=== PATIENT | male | born 1960 | race Caucasian/White ===

== ENCOUNTER 2022-11-11 07:24 | Day surgery (SDC) | payer OTHER ==
[2022-11-06 14:52] VITALS: BP 132/94
[2022-11-06 15:00] LABS: BASOPHILS % (AUTO) 0.7 % (0.0-5.0); EOSINOPHILS % (AUTO) 2.7 % (0.0-8.0); LYMPHOCYTES % (AUTO) 21.3 % (21.0-51.0); MEAN CORPUSCULAR HGB CONC 33.2 g/dL (32.0-36.0); MEAN CORPUSCULAR VOLUME 93.3 fL (79-99); MONOCYTES % (AUTO) 7.4 % (3.0-13.0); NEUTROPHILS % (AUTO) 67.6 % (40.0-77.0); PLATELET COUNT (AUTO) 229 K/uL (130-400); RED BLOOD CELL COUNT(AUTO) 5.36 MIL/uL (4.50-6.20); RED CELL DISTRIBUTION WIDTH 12.9 % (11.0-15.5); WHITE BLOOD COUNT (AUTO) 11.7 K/uL (4.8-10.8)
[2022-11-06 15:06] LABS: CREATININE 1.5 mg/dL (0.5-1.5)
[2022-11-06 15:18] LABS: INR 1.01 (0.85-1.15)
[2022-11-06 15:19] LABS: PARTIAL THROMBOPLASTIN TIME 30.2 SEC (26.3-35.5)
[2022-11-06 15:23] LABS: B-TYPE NATRIURETIC PEPTIDE 91 pg/mL (0-100)
[~2022-11-11] VITALS: Ht 190.5 cm; Wt 146.7 kg
[~2022-11-11 07:24] MED LIST: AMIO200T68 PO; AMLO-257 PO; APIX5TAB PO; ATOR40TA69 PO; LOSA100T58 PO; METO100T14 PO
[2022-11-11] MEDS ORDERED: 0.9%NACL 1000ML 1,000 ML IV ONE (08:43)
[2022-11-11 08:48] VITALS: BP 142/95
[2022-11-11] MEDS ORDERED: LIDOCAINE HCL 2% VISCOUS 15 ML UDCUP ONE (08:59)
[2022-11-11] MEDS ORDERED: MIDAZOLAM HCL 1 MG/ML 2ML VIAL ONE ×2 (09:02→09:30)
[2022-11-11] MEDS ORDERED: FENTANYL CITRATE PF 50 MCG/1 ML 2ML VIAL ONE (09:02)
[2022-11-11] MEDS ORDERED: NALOXONE HCL 0.4 MG/1 ML ML ONE (09:03)
[2022-11-11] MEDS ORDERED: FLUMAZENIL 0.1MG/1ML 5ML VIAL IV ONE (09:03)
[2022-11-11] MEDS ORDERED: SILVER SULFADIAZINE CREAM 50 GM TP SCH (10:00)
== END 2022-11-11 11:30 | disposition home or self-care (01) ==
LOC: DAH 07:24
PROVIDERS: ATTEND Internal Medicine Interventional Cardiology
DX: I48.11 Longstanding persistent atrial fibrillation (principal); Z20.822 Contact with and (suspected) exposure to COVID-19; I34.0 Nonrheumatic mitral (valve) insufficiency; E66.01 Morbid (severe) obesity due to excess calories; I10 Essential (primary) hypertension; Z86.73 Personal history of transient ischemic attack (TIA), and cerebral infarction without residual deficits; Z95.5 Presence of coronary angioplasty implant and graft; Z68.41 Body mass index [BMI] 40.0-44.9, adult; Z79.899 Other long term (current) drug therapy; Z98.890 Other specified postprocedural states
CPT/HCPCS: 80048; 83880; 85025; 85610; 85730; 87426; 36415; 92960; 93312; 93005 ×2; A4663 ×2; J3010; J7030; J2250 ×2; A4615; A4215; A4223; A7002; A4222; A4221; A4606; 93325; 99152; J2310; J3490